=== PATIENT | female | born 1980 | race Caucasian/White ===

== ENCOUNTER 2017-08-04 18:13 | Emergency (ER) | payer OTHER ==
[~2017-08-04] VITALS: Ht 162.6 cm; Wt 137.0 kg
[~2017-08-04 18:13] MED LIST: ACYCLOVIR 400400 MG PO; BACTRIM DS TAB1 EACH PO; CARVEDILOL12.5 MG PO; CHILDREN'S ASPI81 M1 PO; CLOTRIMAZOLE 1%15 G1 TOP; COZAAR 25 MG TA25 M1 PO; CRESTOR10 MG PO; DOXYCYCLINE 10100 MG PO; FLAGYL500 MG PO; HYDROCHLOROTH12.5 M1 PO; HYDROXYZINE HCL25 M2 PO; HYTRIN 5 M5 MG/1 CAP PO; METFORMIN HCL500 MG PO; NAPROSYN500 MG PO; NYAMYC15 GM TOP; NYQUIL D COLD295 ML; PHENAZOPYRIDIN200 M2 PO; PLAVIX 75 MG TA75 M1 PO; ZYLOPRIM300 MG PO
[2017-08-04] MEDS ORDERED: TOBRADEX EYE DRO5 ML OPHTHALMIC (18:53)
[2017-08-04] MEDS ORDERED: LISINOPRIL20 MG PO (19:03)
== END 2017-08-04 19:08 | disposition home or self-care (01) ==
LOC: ER 18:13
DX: J06.9 Acute upper respiratory infection, unspecified (principal); H10.9 Unspecified conjunctivitis; Z90.49 Acquired absence of other specified parts of digestive tract

== ENCOUNTER 2020-02-24 19:18 | Emergency (ER) | payer OTHER ==
[~2020-02-24] VITALS: Ht 162.6 cm; Wt 136.1 kg
[~2020-02-24 19:18] MED LIST changes: +LISINOPRIL20 MG PO; +TOBRADEX EYE DRO5 ML OPHTHALMIC
[2020-02-24] MEDS ORDERED: ZESTRIL20 MG PO (19:53)
[2020-02-24] MEDS ORDERED: KEFLEX500 M1 PO (19:53)
[2020-02-24] MEDS ORDERED: METFORMIN HCL500 M3 PO (19:53)
[2020-02-24 20:15] VITALS: BP 182/115
== END 2020-02-24 20:16 | disposition home or self-care (01) ==
LOC: ER 19:18
DX: S70.361A Insect bite (nonvenomous), right thigh, initial encounter (principal); Z90.49 Acquired absence of other specified parts of digestive tract; Z79.899 Other long term (current) drug therapy; W57.XXXA Bitten or stung by nonvenomous insect and other nonvenomous arthropods, initial encounter; Y93.89 Activity, other specified; Y92.89 Other specified places as the place of occurrence of the external cause; Y99.8 Other external cause status